=== PATIENT | female | born 1960 | race Caucasian/White ===

== ENCOUNTER → 2018-07-03 16:45 | Outpatient (CLI) | payer OTHER, SELFPAY ==
[2018-07-03 17:49] LABS: Hemoglobin A1C% w Est Avg Glu 5.8 % (4.0-6.0)
[2018-07-03 18:05] LABS: Alanine Aminotransferase 29 IU/L (9-52); Albumin 4.5 g/dL (3.5-5.0); Albumin Globulin Ratio 1.6 (1.0-2.8); Alkaline Phosphatase 78 U/L (38-126); Aspartate Aminotransferase 24 IU/L (14-36); Bilirubin Total 0.4 mg/dL (0.2-1.3); Blood Urea Nitrogen 8 mg/dL (7-17); Calcium 9.5 mg/dL (8.4-10.2); Carbon Dioxide 26 mmol/L (22-32); Chloride 105 mmol/L (98-107); Estimated Glomerular Filt Rate > 60.0 mL/min (>60); Globulin 2.8 g/dL (1.7-4.1); Glucose 93 mg/dL (70-100); HEMOLYSIS 19 (0-50); Potassium 4.2 mmol/L (3.4-5.1); Sodium 145 mmol/L (137-145); Total Protein 7.3 g/dL (6.3-8.2)
[2018-07-03 18:34] LABS: Thyroid Stimulating Hormone 1.78 uIU/mL (0.47-4.68)
[2018-07-03 18:52] LABS: Vitamin B12 466 pg/mL (239-931)
[2018-07-05 16:52] LABS: Zinc 92 mcg/dL (60-130)
== END ==
PROVIDERS: Visit Provider Family Medicine
DX: R43.9 Unspecified disturbances of smell and taste (principal)
CPT/HCPCS: 36415; 80053; 82607; 83036; 84443; 84630